=== PATIENT | male | born 1950 | race Caucasian/White ===

== ENCOUNTER 2017-09-30 06:58 | Inpatient (IN) | payer MEDICARE, BC ==
[~2017-09-30] VITALS: Ht 182.9 cm; Wt 127.0 kg
[2017-09-30 07:28] LABS: BASO % 0.3 % (0.0-2.0); EOS # 0.1 (0.0-0.7); EOS % 0.4 % (0-4.0); GRAN # 10.9 (1.4-6.5); GRAN % 80.4 % (42.2-75.2); HEMATOCRIT 44.8 % (42.0-52.0); HEMOGLOBIN 14.8 g/dl (13.5-18.0); LYMPH # 1.1 (1.2-3.4); LYMPH % 7.9 % (20.0-51.0); MEAN CELL VOLUME 96 fl (80.0-100.0); MEAN CORPUSCULAR HEMOGLOBIN 32 pg (27.0-31.0); MEAN CORPUSCULAR HGB CONC 33 g/dl (33.0-37.0); MEAN PLATELET VOLUME 10.7 fl (7.4-10.4); MONO # 1.4 (0.1-0.6); MONO % 10.3 % (1.7-9.3); PLATELET COUNT 231 K/mm3 (130-400); RED BLOOD COUNT 4.69 M/mm3 (4.20-5.60); REDCELL DISTRIBUTION WIDTH-CV 12.4 % (11.5-14.5)
[2017-09-30 07:41] LABS: ALANINE AMINOTRANSFERASE 41 U/L (21-72); ALBUMIN 4.3 gm/dL (3.5-5.0); ALKALINE PHOSPHATASE 74 U/L (50-136); ANION GAP 10 mmol/L (7-16); AST,SGOT 27 U/L (15-37); BILIRUBIN,TOTAL 1.1 mg/dL (0.0-1.0); BLOOD UREA NITROGEN 13 mg/dL (9-20); CALCIUM 9.4 mg/dL (8.4-10.2); CARBON DIOXIDE 24 mmol/L (22-30); CHLORIDE 100 mmol/L (98-107); CREATININE, serum 0.96 mg/dL (0.66-1.25); GLUCOSE 170 mg/dL (74-106); LIPASE 48 U/L (23-300); POTASSIUM 4.1 mmol/L (3.4-5.0); SODIUM 134 mmol/L (137-145); TOTAL PROTEIN 7.2 gm/dL (6.4-8.2)
[2017-09-30] MEDS ORDERED: PRINZIDE 12.5 M1 TAB PO (07:42)
[2017-09-30] MEDS ORDERED: LIPITOR 40MG TA40 MG PO (07:42)
[2017-09-30] MEDS ORDERED: TOPROL XL 50MG50 MG PO (07:42)
[2017-09-30 07:55] LABS: INFLUENZA A NEGATIVE; INFLUENZA B NEGATIVE
[2017-09-30 08:01] LABS: TROPONIN-I < 0.012 ng/mL (0.000-0.034)
[2017-09-30 10:16] LABS: COLLECTION METHOD CLEAN CATCH
[2017-09-30 10:29] LABS: PH 6 (5-8); SQUAMOUS EPITHELIAL 0-2 /hpf; URINE APPEARANCE Clear; URINE BACTERIA None Seen /hpf; URINE BILIRUBIN Negative (NEGATIVE); URINE BLOOD 1+ (NEGATIVE); URINE COLOR Yellow; URINE GLUCOSE Negative (NEGATIVE); URINE KETONE Negative (NEGATIVE); URINE LEUKOCYTE ESTERASE Negative (NEGATIVE); URINE NITRATE Negative (NEGATIVE); URINE PROTEIN(semi-quant) Negative (NEGATIVE); URINE RBC None Seen /hpf; URINE UROBILINOGEN Negative (NEGATIVE)
[2017-09-30 15:37] VITALS: BP 126/83; PULSE 112; TEMP 98.2
[2017-09-30 17:02] VITALS: BP 126/83; PULSE 112; TEMP 98.2
[2017-09-30 19:48] VITALS: BP 101/70; PULSE 112; TEMP 98.2
[2017-10-01 00:45] VITALS: BP 115/88; PULSE 102; TEMP 98.5
[2017-10-01 06:20] VITALS: BP 121/73; PULSE 75; TEMP 97.6
[2017-10-01 07:27] LABS: BASO % 0.4 % (0.0-2.0); EOS # 0.1 (0.0-0.7); EOS % 0.9 % (0-4.0); GRAN # 6.7 (1.4-6.5); GRAN % 70.1 % (42.2-75.2); HEMATOCRIT 40.5 % (42.0-52.0); HEMOGLOBIN 13.1 g/dl (13.5-18.0); LYMPH # 1.3 (1.2-3.4); LYMPH % 13.8 % (20.0-51.0); MEAN CELL VOLUME 98 fl (80.0-100.0); MEAN CORPUSCULAR HEMOGLOBIN 32 pg (27.0-31.0); MEAN CORPUSCULAR HGB CONC 32 g/dl (33.0-37.0); MEAN PLATELET VOLUME 11.3 fl (7.4-10.4); MONO # 1.3 (0.1-0.6); MONO % 14.1 % (1.7-9.3); PLATELET COUNT 193 K/mm3 (130-400); RED BLOOD COUNT 4.14 M/mm3 (4.20-5.60); REDCELL DISTRIBUTION WIDTH-CV 12.4 % (11.5-14.5)
[2017-10-01 07:40] LABS: ANION GAP 4 mmol/L (7-16); BLOOD UREA NITROGEN 12 mg/dL (9-20); CALCIUM 8.5 mg/dL (8.4-10.2); CARBON DIOXIDE 25 mmol/L (22-30); CHLORIDE 105 mmol/L (98-107); CHOLESTEROL 103 mg/dL (120-200); CHOLESTEROL RISK RATIO 2.4; CREATININE, serum 1.03 mg/dL (0.66-1.25); GLUCOSE 134 mg/dL (74-106); HDL CHOLESTEROL 42 mg/dL; LDL CHOLESTEROL 46 mg/dL; POTASSIUM 4.2 mmol/L (3.4-5.0); SODIUM 134 mmol/L (137-145); TRIGLYCERIDE 73 mg/dL
[2017-10-01 07:50] LABS: TROPONIN-I < 0.012 ng/mL (0.000-0.034)
[2017-10-01 08:10] VITALS: BP 125/69; PULSE 73; TEMP 98.3
[2017-10-01] MEDS ORDERED: LANOXIN 0.25M0.25 MG PO (10:14)
[2017-10-01] MEDS ORDERED: COUMADIN 5MG5 MG/TAB PO (10:16)
[2017-10-01 10:36] LABS: INR 1.3 (0.8-3.0); PROTHROMBIN TIME 14.8 SECONDS (9.7-12.8)
== END 2017-10-01 13:15 | disposition home or self-care (01) | DRG 309 ==
LOC: COL.ER 06:58 → MEDICAL 12:16
PROVIDERS: Emergency Medicine; Nurse Practitioner Family; Physician Assistant
DX: I48.91 Unspecified atrial fibrillation (principal); I31.3 Pericardial effusion (noninflammatory); R65.10 Systemic inflammatory response syndrome (SIRS) of non-infectious origin without acute organ dysfunction; I48.92 Unspecified atrial flutter; I10 Essential (primary) hypertension; Z87.891 Personal history of nicotine dependence; N28.9 Disorder of kidney and ureter, unspecified
CPT/HCPCS: 99223-AI; 99239; J0696; J1160; J1650; J1885; J7030; Q9967

== ENCOUNTER → 2019-11-20 | Outpatient (CLI) | payer MEDICARE, BC ==
[~2019-11-20] MED LIST: COUMADIN 5MG5 MG/TAB PO; LANOXIN 0.25M0.25 MG PO; LIPITOR 40MG TA40 MG PO; PRINZIDE 12.5 M1 TAB PO; TOPROL XL 50MG50 MG PO
== END ==
LOC: COL.RAD 11:30
DX: R10.9 Unspecified abdominal pain (principal); Z90.5 Acquired absence of kidney; Z90.49 Acquired absence of other specified parts of digestive tract

== ENCOUNTER 2021-04-01 06:43 | Day surgery (SDC) | payer MEDICARE, BC ==
[2021-04-01] VITALS (10 sets, daily range): BP systolic 115–141; BP diastolic 43–74; PULSE 43–72; TEMP 98–98.4
[~2021-04-01] VITALS: Ht 182.9 cm; Wt 123.2 kg
[2021-04-01] MEDS ORDERED: ASPIRIN E.C. 8181 MG PO (07:58)
[2021-04-01] MEDS ORDERED: NORVASC 5MG5 MG/TAB PO (07:58)
[2021-04-01] MEDS ORDERED: HCTZ12.5TAB PO (07:59)
[2021-04-01] MEDS ORDERED: PRINIVIL10 MG PO (07:59)
[2021-04-01] MEDS ORDERED: NITROSTAT0.4 MG/TAB SL (08:00)
[2021-04-01] MEDS ORDERED: CLARITIN 1010 MG/TAB PO (08:00)
[2021-04-01] MEDS ORDERED: BETAPACE 80MG80 MG PO (08:01)
--- NOTE | 2021-04-01 08:02 | NUR ---
TO RM AT 0700- CALL LIGHT IN REACH AT BEDSIDE.
--- NOTE | 2021-04-01 23:56 | NUR ---
Alexander PRN given around 2200. RN scanned the meds and looks like it din't go through. RN notified the Charge Nurse and was told to do a progress note about the incident.
[2021-04-02 00:10] VITALS: BP 132/61; PULSE 74; TEMP 97.4
[2021-04-02 04:18] VITALS: BP 153/73; PULSE 62; TEMP 98.2
--- NOTE | 2021-04-02 04:24 | NUR ---
Patient is been complaining of pain since I came in my shift. He got Morphine before shift change and continue having pain. I gave him Terry at 2200 and still complaining in pain. He gets up to the bathroom 1 assist. He got Morphine at 2355 and Tylenol sched at 0030. He slept since then. I gave him ice compress to help relieve inflammation. Continue to monitor.
--- NOTE | 2021-04-02 06:30 | NUR ---
RECEIVED REPORT FROM BASILIO DOMINGUEZ. PATIENT WAS ASSISTED TO RESTROOM X 1 ASSIST WITH GAITBELT. PATIENT REPORTED HE DID NOT HAVE A WALKER BUT WOULD CALL FAMILY TO BRING HIS PERSONAL ONE. CALL LIGHT AND BEDSIDE TABLE ARE WITHIN REACH. WILL CONTINUE TO MONITOR PATIENT THROUGHOUT SHIFT.
[2021-04-02 07:03] LABS: HEMATOCRIT 39.1 % (42.0-52.0); HEMOGLOBIN 12.9 g/dl (13.5-18.0)
[2021-04-02 08:00] VITALS: BP 150/55; PULSE 66; TEMP 98.2
--- NOTE | 2021-04-02 10:28 | NUR ---
SW met with patient to complete intake. Patient states that he lives with his here in [phone] [phone]. Patient states that he does utilize a walker, and is independent with ADL's. Patient provides that PCP is Dr. Blakely, pharmacy is [facility] and he states that he is able to afford his medications at this time. Patient provides that he does have DPOA-HC documentation at home and will see if his can bring it up when she picks him up hopefully today he states. Patient states that his plan is to return home up on [place] and has no concerns with doing so. SW will continue to follow. Plan: Home with .
[2021-04-02 11:36] VITALS: BP 136/76; PULSE 72; TEMP 97.8
[2021-04-02] MEDS ORDERED: ASPI325T6 PO (14:33)
[2021-04-02] MEDS ORDERED: NORCO 325 MG-7.1 TAB PO (14:34)
[2021-04-02] MEDS ORDERED: ROXICODONE 55 MG/TAB PO (14:35)
[2021-04-02] MEDS ORDERED: SENOKOT S 50 MG1 TAB PO (14:35)
--- NOTE | 2021-04-02 17:17 | NUR ---
DISCHARGE INSTRUCTIONS REVIEWED WITH PATIENT. QUESTIONS SOLICITED AND ANSWERED. PT VERBALIZED UNDERSTANDING. PT TAKEN TO FRONT BY WHEELCHAIR AND STAFF.
== END 2021-04-02 16:00 | disposition home or self-care (01) ==
LOC: SURG 06:43 → SDCO 06:43 → SURG 13:21 → SDCO 04-02 16:00
PROVIDERS: Orthopaedic Surgery
DX: M17.11 Unilateral primary osteoarthritis, right knee (principal); D62 Acute posthemorrhagic anemia; I25.10 Atherosclerotic heart disease of native coronary artery without angina pectoris; G47.33 Obstructive sleep apnea (adult) (pediatric); I48.91 Unspecified atrial fibrillation; E78.5 Hyperlipidemia, unspecified; I13.10 Hypertensive heart and chronic kidney disease without heart failure, with stage 1 through stage 4 chronic kidney disease, or unspecified chronic kidney disease; N18.30 Chronic kidney disease, stage 3 unspecified; E66.01 Morbid (severe) obesity due to excess calories; Z79.82 Long term (current) use of aspirin; Z79.899 Other long term (current) drug therapy; Z99.89 Dependence on other enabling machines and devices; Z87.891 Personal history of nicotine dependence
CPT/HCPCS: OP; A9284; C1713; C1776; J0690; J2250; J2270; J2704; J3010; J7030; J7120